=== PATIENT | male | born 1965 | race Caucasian/White ===

== ENCOUNTER 2016-09-30 14:11 | Outpatient (CLI) | payer OTHER ==
[2016-09-30 14:36] LABS: #Basophils 0.1 thou/uL (0.0-0.2); #Eosinphils 0.1 thou/uL (0.0-0.7); #Lymphocytes 2.6 thou/uL (1.20-3.40); #Monocytes 0.7 thou/uL (0.11-0.59); #Neutrophils 5.4 thou/uL (1.40-6.50); %Basophils 1.1 % (0.0-1.0); %Eosinophils 1.4 % (0.0-10.0); %Lymphocytes 28.8 % (21.0-51.0); %Neutrophils 60.8 % (42.0-75.0); Hemoglobin 15.1 g/dL (14.0-18.0); Mean Corpuscular HGB CONC 33.2 g/dL (32.0-36.0); Mean Corpuscular Hemoglobin 29.7 pg (27.0-31.0); Mean Corpuscular Volume 89.5 fl (80.0-94.0); Mean Platelet Volume 5.8 fL (7.4-10.4); Platelet Count 360 thou/uL (130-400); RBC Distribution Width 12.3 % (11.5-14.5); White Blood Cell (WBC) Count 8.9 thou/uL (4.8-10.8)
[2016-09-30 15:24] LABS: ALT (SGPT) 49 U/L (0-55); AST (SGOT) 38 U/L (5-34); Albumin 4.5 g/dL (3.5-5.0); Alkaline Phosphatase 90 U/L (40-150); Anion Gap 14 mmol/L (10-20); BUN (Urea Nitrogen) 16 mg/dL (8.4-25.7); Bilirubin, Total 0.7 mg/dL (0.2-1.2); Calc. Creatinine Clearance 0 mL/min (70-130); Calcium 9.8 mg/dL (7.8-10.44); Carbon Dioxide 27 mmol/L (22-29); Cardiac Risk 5.7 (Less than 4.5); Chloride 103 mmol/L (98-107); Cholesterol 193 mg/dL (< 200 Desired); Estimated GFR-MDRD 85; Globulin 3.2 g/dL (2.4-3.5); Glucose 88 mg/dL (70-105); HDL Cholesterol 34 mg/dL (>60 Neg Risk); LDL Cholesterol, Calculated 144 mg/dL; Potassium 4.1 mmol/L (3.5-5.1); Protein, Total 7.7 g/dL (6.0-8.3); Sodium 140 mmol/L (136-145); Triglycerides 77 mg/dL (Less than 150)
[2016-09-30 15:46] LABS: PSA-Asymptomatic (SCREENING) 0.63 ng/mL (0-4.0); Thyroid Stimulating Hormone 0.8634 uIU/mL (0.35-4.94)
== END 2016-09-30 14:12 | disposition home or self-care (01) ==
LOC: HPCALD 14:11
PROVIDERS: ATTEND Family Medicine
DX: Z12.5 Encounter for screening for malignant neoplasm of prostate (principal); E78.00 Pure hypercholesterolemia, unspecified
CPT/HCPCS: 36415; 80053; 80061; 84443; 85025; G0103

== ENCOUNTER 2016-10-09 14:07 | Outpatient (CLI) | payer OTHER ==
--- NOTE | 2016-10-09 19:42 | RAD ---
CERVICAL SPINE FIVE VIEWS 10/09/16 No fracture, disc space narrowing, or soft tissue swelling was seen. The C1 to dens distance is norm al. There is very slight loss of the normal lordosis in the upper cervical region. The oblique views show no prominent foraminal narrowing. There was the most minimal narrowing on the right at C5-6, but there is still ample room for the exiting nerve root. IMPRESSION: Other than slight loss of lordosis, no acute finding. POS: HOME
== END 2016-10-09 14:08 | disposition home or self-care (01) ==
LOC: BURRAD 14:07
PROVIDERS: ATTEND Family Medicine
DX: M54.12 Radiculopathy, cervical region (principal)
CPT/HCPCS: 72050

== ENCOUNTER 2016-10-23 13:14 | Outpatient (CLI) | payer OTHER ==
--- NOTE | 2016-10-23 16:14 | MRI ---
EXAM: CERVICAL SPINE MRI WITHOUT CONTRAST: HISTORY: Cervical radiculopathy. COMPARISON: None. TECHNIQUE: A cervical spine MRI is performed without intravenous Gadolinium administration. Multisequential, m ultiplanar imaging is performed. FINDINGS: There is straightening of normal cervical lordosis. Vertebral body height is maintained. There is no fracture. There is no prevertebral soft tissue swelling. There is 1.8 mm anterolisthesis of C2 upon C3. Visualized brain parenchyma, cervicomedullary junction, cervical cord, and the upper thoracic cord h ave a normal size and signal intensity. C2-C3: No significant disk-osteophyte complex. No significant central canal stenosis. Neural fora deana are patent. C3-C4: No significant disk-osteophyte complex. No significant central canal stenosis. Bilaterally , foramina are patent. C4-C5: No significant disk-osteophyte complex. No significant central canal stenosis. Bilaterally , neural foramina are patent. C5-C6: Broad-based disk-osteophyte complex abuts the thecal sac. Mild central canal stenosis. Deg enerative change in bilateral uncovertebral joints results in moderate right and left foraminal narr owing. C6-C7: Broad-based disk-osteophyte complex abuts the thecal sac. Mild central canal stenosis. Mil d flattening of the cervical cord. Overall, there is mild to moderate central canal stenosis. No d efinite T2 hyperintensity in the cord. Moderate bilateral foraminal narrowing due to degenerative c hange of the uncovertebral joint. C7-T1: No significant disk-osteophyte complex. Bilaterally, neural foramen are patent. IMPRESSION: Degenerative change of the cervical spine as detailed above. POS: [facility]
--- NOTE | 2016-10-23 21:26 | RAD ---
SINUSES GONSALEZ VIEW 10/23/16 A single view was obtained. The patient has a history of metal being removed from his eye three week s ago. This study is done for MRI clearance. No opaque foreign body was seen in the eye. A tiny bright speck just above the frontal sinus is most likely film artifact. There may be some mucosal thickening in the left maxillary sinus. IMPRESSION: No opaque foreign bodies in the orbit. POS: HOME
== END 2016-10-23 13:15 | disposition home or self-care (01) ==
LOC: BURMRI 13:14
PROVIDERS: ATTEND Family Medicine
DX: M54.12 Radiculopathy, cervical region (principal); M47.892 Other spondylosis, cervical region
CPT/HCPCS: 70210; 72141

== ENCOUNTER 2017-12-13 08:45 | Emergency (ER) | payer OTHER | END 2017-12-13 09:25 | disposition home or self-care (01) | LOC: BURERS 08:45 | DX: S61.214A Laceration without foreign body of right ring finger without damage to nail, initial encounter (principal); M19.90 Unspecified osteoarthritis, unspecified site; Z87.442 Personal history of urinary calculi; W26.8XXA Contact with other sharp object(s), not elsewhere classified, initial encounter | CPT/HCPCS: 12001 ==

== ENCOUNTER 2022-01-20 06:47 | Emergency (ER) | payer BC ==
[2022-01-20] MEDS ORDERED: Promethazine HCl 25 MG/ML VIAL ONE (07:32)
[2022-01-20] MEDS ORDERED: Morphine 10 MG/ML VIAL ONE (07:32)
[2022-01-20] MEDS ORDERED: Ketorolac Tromethamine 30 MG/ML VIAL ONE (07:32)
[2022-01-20 07:43] LABS: Bilirubin Negative (Negative); Blood, Urine Trace (Negative); Clarity Clear (Clear); Glucose, Urine (Dipstick) Negative (Negative); Ketone, Urine Negative (Negative); Leukocyte Negative (Negative); Nitrite Negative (Negative); Protein, Urine (Dipstick) 100 mg/dL (Neg-Trace); Urobilinogen 0.2 mg/dL (Less than 2)
[2022-01-20 07:44] LABS: Specific Gravity, Urine 1.021 (1.002-1.036)
[2022-01-20 07:45] LABS: #Basophils 0.1 thou/uL (0.0-0.2); #Eosinphils 0.1 thou/uL (0.0-0.7); #Lymphocytes 1.9 thou/uL (1.20-3.40); #Monocytes 0.6 thou/uL (0.11-0.59); %Basophils 1.6 % (0.0-1.0); %Eosinophils 1.8 % (0.0-10.0); %Lymphocytes 24.4 % (21.0-51.0); %Monocytes 8.1 % (0.0-10.0); %Neutrophils 64.1 % (42.0-75.0); Hemoglobin 13.4 g/dL (14.0-18.0); Mean Corpuscular HGB CONC 32.8 g/dL (32.0-36.0); Mean Corpuscular Hemoglobin 28.6 pg (27.0-31.0); Mean Corpuscular Volume 87.2 fL (78.0-98.0); Mean Platelet Volume 6.5 fL (7.4-10.4); Platelet Count 335 thou/uL (130-400); RBC Distribution Width 13.8 % (11.5-14.5); White Blood Cell (WBC) Count 7.9 thou/uL (4.8-10.8)
[2022-01-20 07:47] LABS: Bacteria/HPF 1+ HPF (None Seen); RBC/HPF 0-3 HPF (0-3); Squamous Epithelial 0-3 HPF (0-3); WBC/HPF 0-3 HPF (0-3)
[2022-01-20 08:01] LABS: ALT (SGPT) 86 U/L (8-55); AST (SGOT) 58 U/L (5-34); Alkaline Phosphatase 97 U/L (40-110); Anion Gap 16 mmol/L (10-20); BUN (Urea Nitrogen) 15 mg/dL (8.4-25.7); Bilirubin, Total 0.3 mg/dL (0.2-1.2); Calc. Creatinine Clearance 0 mL/min (70-130); Carbon Dioxide 24 mmol/L (22-29); Chloride 102 mmol/L (98-107); Estimated GFR 102; Globulin 3.3 g/dL (2.4-3.5); Glucose 186 mg/dL (70-105); Lipase 22 U/L (8-78); Potassium 4.1 mmol/L (3.5-5.1); Protein, Total 7.3 g/dL (6.0-8.3); Sodium 138 mmol/L (136-145)
[2022-01-20] MEDS ORDERED: Morphine 4 MG/ML VIAL ONE (08:56)
== END 2022-01-20 09:51 | disposition home or self-care (01) ==
LOC: BURERS 06:47
DX: N13.2 Hydronephrosis with renal and ureteral calculous obstruction (principal); E78.5 Hyperlipidemia, unspecified; E78.00 Pure hypercholesterolemia, unspecified; M19.90 Unspecified osteoarthritis, unspecified site; Z87.442 Personal history of urinary calculi; Z79.899 Other long term (current) drug therapy
CPT/HCPCS: 36415; 74176; 80053; 81003; 81015; 83605; 83690; 85025; 96365; 96375; 96376; J1885; J2270; J2550

== ENCOUNTER 2022-02-06 10:18 | Emergency (ER) | payer BC ==
[2022-02-06] MEDS ORDERED: Morphine 4 MG/ML VIAL ONE ×2 (10:50→11:59)
[2022-02-06] MEDS ORDERED: Promethazine HCl 25 MG/ML VIAL ONE (10:50)
[2022-02-06] MEDS ORDERED: Ketorolac Tromethamine 30 MG/ML VIAL ONE (10:50)
[2022-02-06 10:52] LABS: #Basophils 0.1 thou/uL (0.0-0.2); #Eosinphils 0.1 thou/uL (0.0-0.7); #Lymphocytes 2.1 thou/uL (1.20-3.40); #Monocytes 1.1 thou/uL (0.11-0.59); #Neutrophils 10.3 thou/uL (1.40-6.50); %Basophils 0.7 % (0.0-1.0); %Eosinophils 0.9 % (0.0-10.0); %Lymphocytes 15.3 % (21.0-51.0); %Monocytes 7.7 % (0.0-10.0); %Neutrophils 75.4 % (42.0-75.0); Hemoglobin 13.4 g/dL (14.0-18.0); Mean Corpuscular HGB CONC 33.1 g/dL (32.0-36.0); Mean Corpuscular Hemoglobin 28.6 pg (27.0-31.0); Mean Corpuscular Volume 86.3 fL (78.0-98.0); Mean Platelet Volume 5.9 fL (7.4-10.4); Platelet Count 330 thou/uL (130-400); RBC Distribution Width 13.3 % (11.5-14.5); Red Blood Cell (RBC) Count 4.69 mill/uL (4.70-6.10); White Blood Cell (WBC) Count 13.7 thou/uL (4.8-10.8)
[2022-02-06 11:08] LABS: ALT (SGPT) 108 U/L (8-55); AST (SGOT) 63 U/L (5-34); Albumin 4.3 g/dL (3.5-5.0); Alkaline Phosphatase 98 U/L (40-110); Anion Gap 14 mmol/L (10-20); BUN (Urea Nitrogen) 21 mg/dL (8.4-25.7); Bilirubin, Total 0.4 mg/dL (0.2-1.2); Calc. Creatinine Clearance 0 mL/min (70-130); Calcium 9.4 mg/dL (7.8-10.44); Carbon Dioxide 26 mmol/L (22-29); Chloride 103 mmol/L (98-107); Estimated GFR 68; Globulin 3.4 g/dL (2.4-3.5); Glucose 174 mg/dL (70-105); Lipase 64 U/L (8-78); Protein, Total 7.7 g/dL (6.0-8.3); Sodium 139 mmol/L (136-145)
[2022-02-06 11:44] LABS: Bilirubin Negative (Negative); Blood, Urine Moderate (Negative); Clarity Clear (Clear); Glucose, Urine (Dipstick) Negative (Negative); Ketone, Urine Negative (Negative); Leukocyte Negative (Negative); Nitrite Negative (Negative); Protein, Urine (Dipstick) 100 mg/dL (Neg-Trace); Urobilinogen 0.2 mg/dL (Less than 2); pH, Urine 5.5 (5.0-9.0)
[2022-02-06 11:45] LABS: Specific Gravity, Urine 1.029 (1.002-1.036)
[2022-02-06 11:56] LABS: Bacteria/HPF 1+ HPF (None Seen); Mucous/LPF 2+ LPF (<2+); Squamous Epithelial 0-3 HPF (0-3); WBC/HPF 0-3 HPF (0-3)
== END 2022-02-06 12:38 | disposition home or self-care (01) ==
LOC: BURERS 10:18
DX: N13.2 Hydronephrosis with renal and ureteral calculous obstruction (principal); E78.5 Hyperlipidemia, unspecified
CPT/HCPCS: 36415; 74176; 80053; 81003; 81015; 83605; 83690; 85025; 87086; 96365; 96375; 96376; J1885; J2270; J2550

== ENCOUNTER 2023-12-19 16:15 | Emergency (ER) | payer BC | END 2023-12-19 17:08 | disposition home or self-care (01) | LOC: BURERS 16:15 | DX: S50.11XA Contusion of right forearm, initial encounter (principal); E11.9 Type 2 diabetes mellitus without complications; I10 Essential (primary) hypertension; E78.5 Hyperlipidemia, unspecified; W22.8XXA Striking against or struck by other objects, initial encounter; Z79.899 Other long term (current) drug therapy ==